=== PATIENT | male | born 1995 | race Caucasian/White ===

== ENCOUNTER 2018-06-11 07:38 | Inpatient (IN) | payer BC ==
[2018-06-11] VITALS (59 sets, daily range): BP systolic 81–126; BP diastolic 37–71
[~2018-06-11] VITALS: Ht 180.3 cm; Wt 68.3 kg
--- NOTE | ~2018-06-11 | EKG ---
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
[2018-06-11 08:07] LABS: BE(vivo) -10.8 mmol/L (-2 to +3); HCO3 16.4 mmol/L (22.0-26.0); PCO2 41.3 mmHg (35.0-45.0); pH 7.218 (7.360-7.450); sO2 99.8 % (92.0-98.0)
[2018-06-11 08:12] LABS: HEMATOCRIT 45.9 % (42.0-52.0); HEMOGLOBIN 15.8 gm/dL (14.0-18.0); MCH 30.8 pg (26.0-34.0); MCHC 34.4 g/dL (28.0-37.0); MCV 89.4 fL (80.0-100.0); RBC 5.13 mil/uL (4.50-6.00); RDW 13.7 % (10.5-14.5); WBC 10.1 thou/uL (4.0-11.0)
[2018-06-11 08:14] LABS: URINE BILIRUBIN NEGATIVE (Negative); URINE BLOOD 2+ (Negative); URINE CLARITY CLEAR; URINE COLOR YELLOW; URINE GLUCOSE-RANDOM* 3+ (Negative); URINE KETONES NEGATIVE (Negative); URINE LEUKOCYTES-REFLEX NEGATIVE (Negative); URINE NITRITE-REFLEX NEGATIVE (Negative); URINE PROTEIN (DIPSTICK) 2+ (Negative); URINE SPECIFIC GRAVITY >= 1.030 (1.005-1.035); URINE UROBILINOGEN 0.2 E.U./dl (0.2-1.0)
[2018-06-11 08:20] LABS: ANION GAP 16 mmol/L (7-16); BUN 13 mg/dL (7-18); CALCIUM 8.6 mg/dL (8.5-10.1); CHLORIDE 96 mmol/L (98-107); CO2 21 mmol/L (21-32); CREATININE 1.6 mg/dL (0.7-1.3); GLUCOSE 311 mg/dL (74-106); POTASSIUM 3.8 mmol/L (3.5-5.1); SODIUM 133 mmol/L (136-145)
[2018-06-11 08:25] LABS: AMP/METHAMP Negative (Negative); BARBITURATES Negative (Negative); BENZODIAZEPINES POSITIVE (Negative); COCAINE Negative (Negative); METHADONE Negative (Negative); OPIATES Negative (Negative); PCP Negative (Negative)
[2018-06-11 08:29] LABS: SALICYLATE < 2.8 mg/dL (2.8-20.0); TROPONIN-I <0.06 ng/mL (<0.06)
[2018-06-11 08:36] LABS: AMORPHOUS URATES Few /LPF (None Seen); BACTERIA-REFLEX None Seen /HPF (None Seen); HYALINE CASTS 4-10 Moderate /LPF (None Seen); SQUAMOUS 0-3 Few /LPF (0-3); URINE RBC 0-2 Rare /HPF (0-2); URINE WBC-REFLEX 0-5 Rare /HPF (0-5)
[2018-06-11 20:45] LABS: HCO3 20.9 mmol/L (22.0-26.0); PCO2 30.9 mmHg (35.0-45.0); PO2 149.9 mmHg (80.0-100.0); pH 7.449 (7.360-7.450)
[2018-06-12] VITALS (32 sets, daily range): BP systolic 85–129; BP diastolic 40–63
[2018-06-12 06:00] LABS: HCO3 24.5 mmol/L (22.0-26.0); PCO2 43.7 mmHg (35.0-45.0); PO2 144.4 mmHg (80.0-100.0); pH 7.367 (7.360-7.450); sO2 98.8 % (92.0-98.0)
[2018-06-12 09:24] LABS: BE(vivo) -3.2 mmol/L (-2 to +3); PCO2 40.1 mmHg (35.0-45.0); PO2 142.6 mmHg (80.0-100.0); pH 7.358 (7.360-7.450); sO2 98.7 % (92.0-98.0)
[2018-06-13] VITALS (25 sets, daily range): BP systolic 89–147; BP diastolic 35–89
[2018-06-13 06:06] LABS: ALBUMIN 2.9 g/dL (3.4-5.0); CALCIUM 7.9 mg/dL (8.5-10.1); MAGNESIUM 1.9 mg/dL (1.8-2.4); POTASSIUM 3.6 mmol/L (3.5-5.1); TOTAL BILIRUBIN 0.5 mg/dL (<0.1-1.0); TOTAL PROTEIN 5.8 g/dL (6.4-8.2)
[2018-06-13] MEDS ORDERED: ATIVAN0.5 MG PO (13:27)
[2018-06-13] MEDS ORDERED: MELATONIN5 M1 PO (13:27)
[2018-06-13] MEDS ORDERED: LIDOCAINE VISC100 ML PO (13:27)
[2018-06-13] MEDS ORDERED: HYDROCODON-ACE1 EAC7 PO (13:27)
[2018-06-13] MEDS ORDERED: CEPACOL SORE T1 EAC7 PO (13:27)
[2018-06-13] MEDS ORDERED: SEROQUEL 25 MG25 M1 PO (13:27)
[2018-06-14] VITALS (7 sets, daily range): BP systolic 95–124; BP diastolic 40–81
[2018-06-15 18:09] LABS: TRICYCLIC (TCA) CONFIRMATION Negative ng/mL (Cutoff=100)
== END 2018-06-14 15:54 | DRG 922 ==
LOC: ER 07:38 → ICU 09:40 → EROBS 09:40 → ICU 10:22
PROVIDERS: Emergency Medicine; Internal Medicine; Pediatrics
PROC: 5A1945Z Respiratory Ventilation, 24-96 Consecutive Hours (ICD-10-PCS; principal; 2018-06-11)
PROC: 0BH17EZ Insertion of Endotracheal Airway into Trachea, Via Natural or Artificial Opening (ICD-10-PCS; principal; 2018-06-11)
DX: T71.162A Asphyxiation due to hanging, intentional self-harm, initial encounter (principal); J96.01 Acute respiratory failure with hypoxia; E87.2 Acidosis; N17.9 Acute kidney failure, unspecified; G93.49 Other encephalopathy; E87.1 Hypo-osmolality and hyponatremia; E46 Unspecified protein-calorie malnutrition; F32.9 Major depressive disorder, single episode, unspecified; F20.9 Schizophrenia, unspecified; E87.8 Other disorders of electrolyte and fluid balance, not elsewhere classified; Z68.21 Body mass index [BMI] 21.0-21.9, adult; X83.8XXA Intentional self-harm by other specified means, initial encounter; Y93.89 Activity, other specified; Y92.89 Other specified places as the place of occurrence of the external cause; Y99.8 Other external cause status
CPT/HCPCS: 10078